=== PATIENT | male | born 1990 | race Hispanic/Latino ===

== ENCOUNTER 2017-08-10 07:34 | Emergency (ER) | payer SELFPAY ==
[~2017-08-10] VITALS: Ht 170.2 cm; Wt 79.8 kg
--- NOTE | 2017-08-10 08:02 | ED Integumentary General ---
General Chief Complaint: Skin/Wound Problems Stated Complaint: RASH IN GENITAL AREA Source: patient Exam Limitations: language barrier History of Present Illness Time seen by provider: 07:48 Initial Comments That 3-1/2 weeks ago he started having some burning at the end of his penis as well as a couple small pimples that, ago. He was seen by emergency room doctor and [place] and was given an injection as well as some pills take their in the ER. He says he feels that the pills did not help him much because he is still having some burning pain that comes and goes infrequently. He is sexually active. Does not was wear condoms. He was seen in a ER in [place] many months ago and was told that his potassium was low at that time as well as he had a fatty liver. He does not have a primary care physician or any S medical history that is aware of other than this. He is not on any medications nor does he have allergies to medicines. He denies smoking drinking or using recreational drugs. Allergies and Home Medications Allergies Coded Allergies: No Known Drug Allergies (Unverified , 08/10/17) Constitutional: No chills, No diaphoresis, No fever EENTM: No ear discharge, No ear pain Respiratory: No cough, No short of breath Cardiovascular: No chest pain, No Hx of Intervention Gastrointestinal: No abdominal pain, No constipation, No nausea Genitourinary: No discharge, No dysuria, No frequency, No hematuria Musculoskeletal: No joint pain Psychiatric/Neurological: Denies Anxiety, Denies Depressed Past Jhocbwv-Woyxkk-Trmeth Hx Patient Social History Recent Foreign Travel: No Contact w/Someone Who Travel: No Physical Exam Vital Signs Vital Sign - Last 12Hours 08/10/17 07:47 Temp 98.2 Pulse 105 Resp 20 B/P (MAP) 145/100 Pulse Ox 98 O2 Delivery Room Air Capillary Refill : General Appearance: WD/WN, no apparent distress Cardiovascular: normal peripheral pulses, regular rate, rhythm Respiratory: lungs clear, normal breath sounds Gastrointestinal: normal bowel sounds, non tender, soft Neurologic/Psychiatric: alert, oriented x 3 Skin: normal color, warm/dry Skin Problem Location: other (urethral meatus) Skin Problem Character: tenderness, other (no erythema, discharge, ulceration or lesion seen.) Lymphatic: no adenopathy Progress/Results/Core Measures Results/Orders Lab Results Laboratory Tests Test 08/10/17 08:03 Range/Units Urine Color YELLOW Urine Clarity CLEAR Urine pH 6 5-9 Urine Specific [place] 1.025 H 1.016-1.022 Urine Protein 1+ H NEGATIVE Urine Glucose (UA) NEGATIVE NEGATIVE Urine Ketones NEGATIVE NEGATIVE Urine Nitrite NEGATIVE NEGATIVE Urine Bilirubin NEGATIVE NEGATIVE Urine Urobilinogen NORMAL NORMAL MG/DL Urine Leukocyte Esterase 1+ H NEGATIVE Urine RBC (Auto) NEGATIVE NEGATIVE Urine RBC NONE /HPF Urine WBC 0-2 /HPF Urine Squamous Epithelial Cells RARE /HPF Urine Crystals NONE /LPF Urine Bacteria TRACE /HPF Urine Casts NONE /LPF Urine Mucus SMALL H /LPF Urine Culture Indicated NO My Orders Orders - EGNO ROGERS Ua Culture If Indicated (08/10/17 08:23) Vital Signs/I&O Vital Sign - Last 12Hours 08/10/17 07:47 Temp 98.2 Pulse 105 Resp 20 B/P (MAP) 145/100 Pulse Ox 98 O2 Delivery Room Air Progress Note : Time: 08:46 Progress Note Somewhat he was appropriately treated with Cipro and Rocephin in the ER 3 weeks ago. We'll go ahead and repeat this course and get a GC chlamydia to follow-up. His UA looks okay. Other possibility would be Haemophilus ducreyi . Departure Impression Impression: Primary Impression: Urethritis Disposition: 01 HOME, SELF-CARE Condition: Stable Departure-Patient Inst. Decision time for Depature: 08:47 Referrals: NO,LOCAL PHYSICIAN (PCP/Family) Primary Care Physician Patient Instructions: STD Prevention Add. Discharge Instructions: Establish care with a primary care physician and have them follow your potassium levels. All discharge instructions reviewed with patient and/or family. Voiced understanding. GENO ROGERS Aug 10, 2017 08:02
[2017-08-10 08:30] LABS: BILIRUBIN,URINE NEGATIVE (NEGATIVE); KETONES,URINE NEGATIVE (NEGATIVE); LEUKOCYTE ESTERASE ,URINE 1+ (NEGATIVE); NITRITE,URINE NEGATIVE (NEGATIVE); PH,URINE 6 (5-9); PROTEIN,URINE 1+ (NEGATIVE); UROBILINOGEN,URINE NORMAL (NORMAL)
[2017-08-10 08:38] LABS: SQUAMOUS EPITHELIAL CELL,UR RARE /HPF; WBC,URINE 0-2 /HPF
[2017-08-10] MEDS ORDERED: cefTRIAXone 250 MG (ROCEPHIN) VIAL IM ONE (08:45)
[2017-08-10] MEDS ORDERED: LIDOCAINE 1% INJ 20 ML (XYLOCAINE) VIAL INJ ONE (08:45)
[2017-08-10] MEDS ORDERED: AZITHROMYCIN 250 MG TAB (ZITHROMAX) PO SCH (09:00)
[2017-08-10 09:06] VITALS: BP 140/95
[2017-08-11 16:31] LABS: CHLAMYDIA DNA URINE Not Detected (Not Detected); NEISSERIA GONORRHEA DNA URINE Not Detected (Not Detected)
== END 2017-08-10 09:06 | disposition home or self-care (01) ==
LOC: ER 07:42
DX: N34.2 Other urethritis (principal); Z87.19 Personal history of other diseases of the digestive system
CPT/HCPCS: 36415; 81000; 87491; 87591; 96372; 99284

== ENCOUNTER 2017-08-26 14:42 | Emergency (ER) | payer SELFPAY ==
[~2017-08-26] VITALS: Ht 170.2 cm; Wt 79.8 kg
[2017-08-26 15:37] LABS: BASOPHILS % (AUTO) 0 % (0-10); EOSINOPHILS % (AUTO) 0 % (0-10); LYMPHOCYTES % (AUTO) 23 % (12-44); MEAN CORPUSCULAR HEMOGLOBIN 31 PG (25-34); MEAN CORPUSCULAR HGB CONC 36 G/DL (32-36); MEAN CORPUSCULAR VOLUME 87 FL (80-99); MEAN PLATELET VOLUME 9.1 FL (7.4-10.4); MONOCYTES # (AUTO) 0.8 X 10^3 (0.0-1.0); MONOCYTES % (AUTO) 8 % (0-12); NEUTROPHILS # (AUTO) 6.2 X 10^3 (1.8-7.8); NEUTROPHILS % (AUTO) 69 % (42-75); PLATELET COUNT 333 10^3/uL (130-400); RED BLOOD COUNT 5.22 10^6/uL (4.35-5.85); RED CELL DISTRIBUTION WIDTH 12.1 % (10.0-14.5)
[2017-08-26] MEDS ORDERED: LACTATED RINGERS 1,000 ML IV ONE (15:40)
[2017-08-26 15:45] LABS: BILIRUBIN,URINE NEGATIVE (NEGATIVE); KETONES,URINE NEGATIVE (NEGATIVE); LEUKOCYTE ESTERASE ,URINE NEGATIVE (NEGATIVE); NITRITE,URINE NEGATIVE (NEGATIVE); PH,URINE 8 (5-9); PROTEIN,URINE NEGATIVE (NEGATIVE); UROBILINOGEN,URINE 1 MG/DL (NORMAL)
[2017-08-26 15:48] LABS: INR 0.9 (0.8-1.4); PROTHROMBIN TIME PATIENT 12.2 SEC (12.2-14.7)
[2017-08-26 15:55] LABS: ALANINE AMINOTRANSFERASE 96 U/L (0-55); ALBUMIN 4.7 GM/DL (3.2-4.5); ANION GAP 11 MMOL/L (5-14); ASPARTATE AMINO TRANSFERASE 44 U/L (5-34); BILIRUBIN,TOTAL 0.5 MG/DL (0.1-1.0); BLOOD UREA NITROGEN 9 MG/DL (7-18); BUN/CREATININE RATIO 11; CALCIUM 10.1 MG/DL (8.5-10.1); CARBON DIOXIDE 27 MMOL/L (21-32); CHLORIDE 103 MMOL/L (98-107); CREATININE SERUM 0.82 MG/DL (0.60-1.30); GFR ESTIMATED > 60; GLUCOSE 110 MG/DL (70-105); MAGNESIUM 2.2 MG/DL (1.8-2.4); POTASSIUM 3.4 MMOL/L (3.6-5.0); SODIUM 141 MMOL/L (135-145); TOTAL PROTEIN 8.3 GM/DL (6.4-8.2)
[2017-08-26 15:56] LABS: SQUAMOUS EPITHELIAL CELL,UR RARE /HPF
[2017-08-26] MEDS ORDERED: CATHETER FLUSH 10 ML SYR IV PRN (16:00)
[2017-08-26] MEDS ORDERED: IOHEXOL 350 MG/ML 150 ML (OMNIPAQUE 350) VIAL IV ONE (16:00)
[2017-08-26] MEDS ORDERED: NS 100 ML (IVPB) BAG IV ONE (16:00)
--- NOTE | 2017-08-26 16:10 | Diagnostic Imaging Report ---
INDICATION: Dizziness and palpitation. EXAMINATION: PA and lateral views of the chest are obtained. COMPARISON: No previous study is available for comparison at this time. FINDINGS: Heart size and pulmonary vasculature are within normal limits, and the lungs are clear, bilaterally. IMPRESSION: Unremarkable chest. Dictated by: Dictated on workstation # [id number]
[2017-08-26 16:15] LABS: TROPONIN I < 0.30 NG/ML (<0.30)
--- NOTE | 2017-08-26 16:37 | Diagnostic Imaging Report ---
PROCEDURE: CT angiography of the chest with contrast. TECHNIQUE: Multiple contiguous axial images were obtained through the chest after uneventful bolus administration of intravenous contrast. Reconstructed CTA MIP acquisitions were also performed. INDICATION: Dizziness. Bradycardia. FINDINGS: The pulmonary arteries demonstrate overall good contrast enhancement with no filling defects to suggest pulmonary embolism. Slight breathing motion artifact is seen which could obscure an abnormality in a subsegmental branch The thoracic aorta is normal in caliber. No aortic dissection. There is no mediastinal mass. No significantly enlarged mediastinal lymph node is seen. No hilar or axillary lymphadenopathy is noted. The lungs demonstrate no significant consolidation or mass. No suspicious nodule. The osseous structures appear grossly unremarkable. The heart size is normal. No pericardial or pleural effusion. There is mild hepatic steatosis. IMPRESSION: There is generally good opacification of the pulmonary arteries with some breathing motion artifact that could limit evaluation of the subsegmental pulmonary artery branches. No evidence of pulmonary embolism is seen however. Dictated by: Dictated on workstation # [id number]
--- NOTE | 2017-08-26 16:40 | ED General ---
General Chief Complaint: Cardiac/General Problems Stated Complaint: DIZZY,PALPITATIONS Nursing Triage Note: C/O palpitations and dizzy starting this am. States he has been having issues with low K but is to eat more bananas. Wants to have "everything checked" states he is nervous Nursing Sepsis Screen: No Definite Risk Source of Information: Patient (PT SPEAKS [place]) History of Present Illness Time Seen by Provider: 15:30 Initial Comments PT ARRIVES VIA POV STATES HE HAS BEEN FEELING DIZZY AND SHAKEY SINCE 929 THIS AM--BEGAN AT WORK ( CONSTRUCTION ) STATES HIS HEART IS "GOING SLOW" NO CHEST PAIN NO SHORTNESS OF BREATH NO SWEATS NO NAUSEA/VOMITING NO SWELLING IN LEGS/ FEET OR PAIN IN CALVES. 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 Allergies and Home Medications Allergies Coded Allergies: No Known Drug Allergies (Unverified , 08/10/17) Constitutional: see HPI, dizziness, other (ANXIOUS, SHAKES) EENTM: no symptoms reported Respiratory: no symptoms reported Cardiovascular: see HPI, No chest pain, No edema, palpitations, No syncope Gastrointestinal: no symptoms reported Genitourinary: no symptoms reported Musculoskeletal: no symptoms reported Skin: no symptoms reported Psychiatric/Neurological: See HPI, Anxiety Hematologic/Lymphatic: No Symptoms Reported Immunological/Allergic: no symptoms reported Past Ukilgpf-Hnjpjh-Evypvq Hx Patient Social History Alcohol Use: Occasionally Uses Recreational Drug Use: No Smoking Status: Current Someday Smoker Type Used: Cigarettes 2nd Hand Smoke Exposure: No Recent Foreign Travel: No Contact w/Someone Who Travel: No Recent Infectious Disease Expo: No Recent Hopitalizations: No Physical Abuse: No Sexual Abuse: No Mistreated: No Fear: No Immunizations Up To Date Tetanus Booster (TDap): Unknown Seasonal Allergies Seasonal Allergies: No Surgeries History of Surgeries: No Respiratory History of Respiratory Disorde: No Cardiovascular History of Cardiac Disorders: No Neurological History of Neurological Disord: No Genitourinary History of Genitourinary Disor: No Gastrointestinal History of Gastrointestinal Di: No Musculoskeletal History of Musculoskeletal Dis: No Endocrine History of Endocrine Disorders: No HEENT History of HEENT Disorders: No Cancer History of Cancer: No Psychosocial History of Psychiatric Problem: No Suicide Risk Score: 0 Integumentary History of Skin or Integumenta: No Blood Transfusions History of Blood Disorders: No Physical Exam Vital Signs Vital Sign - Last 12Hours 08/26/17 08/26/17 15:15 17:23 Temp 98.0 Pulse 107 Resp 18 B/P (MAP) 126/102 Pulse Ox 98 Capillary Refill : Less Than 3 Seconds General Appearance: No Apparent Distress, WD/WN, Anxious HEENT: PERRL/EOMI, TMs Normal, Normal ENT Inspection, Pharynx Normal Neck: Full Range of Motion, Normal Inspection, Non Tender, Supple Respiratory: Normal Breath Sounds, No Accessory Muscle Use, No Respiratory Distress Cardiovascular: No Edema, No JVD, No Murmur, Normal Peripheral Pulses, Tachycardia (MILD) Gastrointestinal: Normal Bowel Sounds, No Organomegaly, No Pulsatile Mass, Non Tender, Soft Back: Normal Inspection, No CVA Tenderness, No Vertebral Tenderness Extremity: Normal Capillary Refill, Normal Inspection, Normal Range of Motion, Non Tender, No Calf Tenderness, No Pedal Edema Neurologic/Psychiatric: Alert, Oriented x3, No Motor/Sensory Deficits, duplex trimmer II- XII Norm as Tested, No Abnormal Cerebellar Tests Reflexes: 2+ Bicep (R), 2+ Bicep (L), 2+ Knee (R), 2+ Knee (L) Skin: Normal Color, Warm/Dry Progress/Results/Core Measures Results/Orders Lab Results My Orders Medications Given in ED Vital Signs/I&O Blood Pressure Mean: 110 Progress Note : Progress Note BP AND HEART RATE DOWN AT TIME OF DISMISSAL ECG Initial ECG Impression Time: 15:31 Initial ECG Rate: 112 Initial ECG Rhythm: S.Tach Initial ECG Comparisson: No Previous ECG Available Diagnostic Imaging Comments CXR--NO ACUTE PROCESS CT CHEST ANGIOGRAM--NO ACUTE PROCESS, NO P.E. PER RADIOLOGIST REPORTS @ 1640 Reviewed: Reviewed by Me Departure Impression Impression: Primary Impression: Anxiety Additional Impressions: MILD HYPOKALEMIA HTN (hypertension) Disposition: 01 HOME, SELF-CARE Condition: Improved Departure-Patient Inst. Referrals: NO,LOCAL PHYSICIAN (PCP/Family) Primary Care Physician Patient Instructions: Anxiety, Adult (DC), Controlling Your Blood Pressure Through Lifestyle, High Blood Pressure (DC), Hypokalemia (DC) Add. Discharge Instructions: DRINK EQUAL AMOUNTS OF WATER AND GATORADE--DRINK ENOUGH SO YOU ARE URINATING EVERY 2-3 HOURS WHILE AWAKE FOLLOW UP WITH LOCAL DRJosesito OF CHOICE NEXT WEEK FOR FURTHER CARE--LIST PROVIDED All discharge instructions reviewed with patient and/or family. Voiced understanding. Work/School Note: Local Medical Staff Listing LAYNE RUGGIERO DO Aug 26, 2017 16:40
[2017-08-26] MEDS ORDERED: KCL 10 MEQ TAB (MICRO K) PO ONE (16:45)
[2017-08-26 17:23] VITALS: BP 108/73
== END 2017-08-26 17:12 | disposition home or self-care (01) ==
LOC: EDUNIT# 14:42 → ER 14:46
DX: F41.9 Anxiety disorder, unspecified (principal); I10 Essential (primary) hypertension; E87.6 Hypokalemia; F17.210 Nicotine dependence, cigarettes, uncomplicated
CPT/HCPCS: 36415; 71020; 71275; 80053; 80306; 81000; 83735; 84443; 84484; 85025; 85610; 85730; 93005; 93041; 96360